=== PATIENT | male | born 1995 | race African-American/Black ===

== ENCOUNTER → 2018-12-14 | Outpatient (CLI) | payer OTHER ==
--- NOTE | 2018-12-14 16:53 | REP ---
LEFT ANKLE, FOUR VIEWS: HISTORY: Injury. There is no acute fracture or dislocation. The joint space is normal in appearance. IMPRESSION:There is no acute fracture or dislocation. Electronically Signed by Nain Conde MD 12/14/2018 04:59 P
== END ==
LOC: M RAD 13:19
PROVIDERS: ATTEND Surgery
DX: M79.89 Other specified soft tissue disorders (principal)